=== PATIENT | female | born 1985 | race African-American/Black ===

== ENCOUNTER 2016-09-24 10:27 | Emergency (ER) | payer OTHER ==
[2016-09-24 10:32] VITALS: BP 112/67; BMI 21.5
--- NOTE | 2016-09-24 10:45 | DR.GENAD ---
HPI - PCP Primary Care Physician: JUAN C - HPI Comment HPI Comment: PATIENT HAVE HISTORY OF CHRONIC HEADACHE. HAVE TAKEN TYLENOL WITHOUT RELIEF. HAVE NAUSEA BUT NO VOMITING. DENIES DYSURIA. - Complaint/Symptoms Chief Complaint Doctors Comments: HEADACHE, LOWER BACK AND ABDOMINAL PAIN. PATIENT IS 4 MONTHS . Chief Complaint:: PT. C/O HEADACHE AND LOWER BACK PAIN. PT. 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 - Nurses notes reviewed Nurses Notes Review: Yes - Source History Provided: Patient - Mode of Arrival Mode of Arrival: Ambulatory - Timing Onset of Chief Complaint: 09/21/16 Came on: Suddenly - Duration Duration: Constant Duration: Days - Severity Severity: Moderate PMH - PMH Past Medical History: No Past Surgical History: No Surgical History: No History - Family History History of Family Medical Conditions: Yes Family Medical History: Coronary Artery Disease, Hypertension - Social History Does patient currently use any type of tobacco product: No Have you used tobacco products in the last 12 months: No Type of Tobacco Use: None Does any household member use tobacco: No Alcohol Use: None Do you use any recreational Drugs:: No Lives With: Family Lives Where: Home - infectious screening In the last 2 months have you had wt loss of >10#?: NO Have you had fever, night sweats or hemotysis?: No Have you traveled outside the country in the last 6 months?: No Isolation: Standard ROS - Review of Systems Constitutional: No Symptoms Reported Eyes: No Symptoms Reported ENTM: No Symptoms Reported. negative: Ear Pain, Nose Congestion, Throat Pain Respiratoy: No Symptoms Reported Cardiovascular: No Symptoms Reported Gastrointestinal/Abdominal: Abdominal Pain Neurological: Headache Musculoskeletal: No Symptoms Reported Integumentary: No Symptoms Reported Hematologic/Lymphatic: No Symptoms Reported Endocrine: No Symptoms Reported All Other Systems: Reviewed and Negative PE - Vital Signs Vitals: Temperature 98.5 F Pulse Rate 89 Respiratory Rate 17 Blood Pressure 112/67 O2 Sat by Pulse Oximetry 100 - General Limitations: No Limitations General Appearance: Alert - Head Head Exam: Normal Inspection - Eyes Eye exam: Normal Appearance - ENT ENT Exam: Normal External Ear Exam External Ear Exam: Normal External Inspection TM/Canal Exam: Bilateral Normal Nose Exam: Normal Nose Exam Mouth Exam: Normal Inspection Throat Exam: Normal Inspection - Neck Neck Exam: Trachea Midline - Chest Chest Inspection: Symmetric Chest Wall Rise - Respiratory Respiratory Exam: Normal Lung Sounds Bilat Respiratory Exam: Bilateral Clear to Auscultation - Cardiovascular Cardiovascular Exam: Regular Rate, Normal Rhythm, Normal Heart Sounds - Abdominal Exam Abdominal Exam: Normal Bowel Sounds, Soft, Tenderness Abdominal Tenderness: RLQ, LLQ, Moderate - Extremities Extremities Exam: Normal Inspection - Back Back Exam: Normal Inspection - Neurologic Neurological Exam: Alert, Oriented X3 - Psychiatric Psychiatric Exam: Anxious - Skin Skin Exam: Normal Color MDM - Differential Diagnosis Differential Diagnosis: LOWER BACK PAIN, LOWER ABDOMINAL PAIN, MIGRAINE HEADACHE Course - Treatment Treatment: SEE ORDERS - Education/Counseling Education/Counseling: Patient, Education Educated On: Diagnosis, Needs for Follow Up ROR - Labs Reviewed Laboratory Results Reviewed?: Yes Laboratory: HCG, Quant 96071 mIU/mL (0-6) H 09/24/16 11:03 Specimen Type Clean catch urine 09/24/16 10:50 Urine Color Yellow (YELLOW) 09/24/16 10:50 Urine Appearance Clear (CLEAR) 09/24/16 10:50 Urine pH 6.0 (5.0 - 8.0) 09/24/16 10:50 Ur Specific Brandon 1.025 (1.000-1.030) 09/24/16 10:50 Urine Protein Negative (NEGATIVE) 09/24/16 10:50 Urine Glucose (UA) Negative (NEGATIVE) 09/24/16 10:50 Urine Ketones 1+ (NEGATIVE) 09/24/16 10:50 Urine Occult Blood Negative (NEGATIVE) 09/24/16 10:50 Urine Nitrite Negative (NEGATIVE) 09/24/16 10:50 Urine Bilirubin Negative (NEGATIVE) 09/24/16 10:50 Urine Urobilinogen 1+ (NORMAL) 09/24/16 10:50 Ur Leukocyte Esterase 1+ (NEGATIVE) 09/24/16 10:50 Urine RBC 0 /HPF (NEGATIVE) 09/24/16 10:50 Urine WBC 1-2 /HPF (NEGATIVE) 09/24/16 10:50 Ur Squamous Epith Cells Rare /HPF (NEGATIVE) 09/24/16 10:50 Urine Bacteria Negative /HPF (NEGATIVE) 09/24/16 10:50 Ur Culture Indicated? No/not indicated 09/24/16 10:50 - XRAY XRAY Interpreted by: Radiologist XRAY Findings: REPORT DISCUSS WITH PATIENT - Diagnosis Discharge Problem: Abdominal pain affecting , Back pain affecting Migraine Qualifiers: Migraine type: without aura Status migrainosus presence: without status migrainosus Intractability: intractable Qualified Code(s): G43.019 - Migraine without aura, intractable, without status migrainosus - Discharge Plan Disposition: 01 HOME, SELF-CARE Condition: Stable Prescriptions: Acetaminophen/Codeine Tab [TYLENOL w/CODEINE #3 (300 MG/30 MG) *] 1 tab PO Q6H PRN #12 tab PRN Reason: Pain - Follow ups/Referrals Follow ups/Referrals: NFD,None [Primary Care Provider] - 3 days MG MITCHELL [STAFF PHYSICIAN] - 1 day - Instructions Instructions: Abdominal Pain During , [id number], Back Pain in , Migraine Headache, [id number] Additional Instructions: RETURN TO ED IF WORSE.
[2016-09-24 11:05] LABS: BILIRUBIN,URINE NEGATIVE (NEGATIVE); BLOOD/HEMOGLOBIN,URINE NEGATIVE (NEGATIVE); GLUCOSE, URINE NEGATIVE (NEGATIVE); KETONES,URINE 1+ (NEGATIVE); LEUKOCYTE ESTERASE ,URINE 1+ (NEGATIVE); NITRITES,URINE NEGATIVE (NEGATIVE); PROTEIN,URINE NEGATIVE (NEGATIVE); UROBILINOGEN,URINE 1+ (NORMAL)
[2016-09-24 11:08] LABS: APPEARANCE,URINE CLEAR (CLEAR); COLOR,URINE YELLOW (YELLOW)
[2016-09-24 11:10] LABS: BACTERIA,URINE NEGATIVE /HPF (NEGATIVE); RBC,URINE 0 /HPF (NEGATIVE); SQUAMOUS EPITHELIAL CELL,UR RARE /HPF (NEGATIVE)
--- NOTE | 2016-09-24 12:25 | US ---
HISTORY: Low back pain and low abdominal pain Study: OB ultrasound greater than 14 weeks Comparison: None Technique: Multiple grayscale and color flow Doppler images of the pelvis were obtained with focused evaluation of the fetus. Findings: A viable single intrauterine is identified with heart tones of 174 beats per minute. A cephalic presentation is observed with a posterior and fundal placenta. Normal amniotic fluid v olume is observed . A three-vessel cord is observed. No intracranial abnormality can be identifie d. Value Estimated Gestational Age BPD 4.4 centimeters 20 weeks 4 days HC 14.5 centimeter 17 weeks 5 days AC 12.8 centimeters 18 weeks 3 days FL 2.6 centimeter 18 weeks IMPRESSION: A viable single intrauterine with an average ultrasound age of 18 weeks correspond to an e stimated date of delivery of February 25. There is a 6.3 centimeter posterior uterine fibroid. Reported By:
== END 2016-09-24 12:46 | disposition home or self-care (01) ==
LOC: ER 10:36
DX: R10.84 Generalized abdominal pain (principal); M54.5 Low back pain; G43.019 Migraine without aura, intractable, without status migrainosus; Z3A.18 18 weeks gestation of pregnancy
CPT/HCPCS: 36415; 76801; 81001; 84702; 99283; 99284

== ENCOUNTER 2016-10-16 19:29 | Emergency (ER) | payer OTHER ==
[2016-10-16 19:36] VITALS: BP 105/58; BMI 21.9
--- NOTE | 2016-10-16 21:22 | DR.GENAD ---
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[employer] - Source History Provided: Patient - Mode of Arrival Mode of Arrival: Ambulatory - Timing Onset of Chief Complaint: 10/15/16 PMH - PMH Past Medical History: No Past Surgical History: No Surgical History: No History - Family History History of Family Medical Conditions: Yes Family Medical History: Coronary Artery Disease, Hypertension - Social History Do you use any recreational Drugs:: No Lives With: Family Lives Where: Home - infectious screening In the last 2 months have you had wt loss of >10#?: NO Have you had fever, night sweats or hemotysis?: No Have you traveled outside the country in the last 6 months?: No Isolation: Standard ROS - Review of Systems Constitutional: No Symptoms Reported Eyes: No Symptoms Reported ENTM: No Symptoms Reported Respiratoy: No Symptoms Reported Cardiovascular: No Symptoms Reported Gastrointestinal/Abdominal: No Symptoms Reported Genitourinary: No Symptoms Reported Neurological: No Symptoms Reported Musculoskeletal: No Symptoms Reported Integumentary: No Symptoms Reported Hematologic/Lymphatic: No Symptoms Reported Endocrine: No Symptoms Reported Psychiatric: No Symptoms Reported All Other Systems: Reviewed and Negative PE - Vital Signs Vitals: Temperature 99.6 F Pulse Rate 103 Respiratory Rate 18 Blood Pressure 105/58 O2 Sat by Pulse Oximetry 100 - General Limitations: No Limitations General Appearance: Alert - Head Head Exam: Normal Inspection, Atraumatic - Eyes Eye exam: Normal Appearance, PERRL, EOMI - ENT ENT Exam: Normal Exam External Ear Exam: Normal External Inspection TM/Canal Exam: Bilateral Normal Nose Exam: Normal Nose Exam Mouth Exam: Normal Inspection Throat Exam: Normal Inspection - Neck Neck Exam: Normal Inspection - Chest Chest Inspection: Normal Inspection - Respiratory Respiratory Exam: Normal Lung Sounds Bilat Respiratory Exam: Bilateral Clear to Auscultation - Cardiovascular Cardiovascular Exam: Regular Rate - Abdominal Exam Abdominal Exam: Normal Inspection Abdominal Tenderness: negative: RUQ, RLQ, LUQ, LLQ, Epigastrium, Suprapubic, Diffuse, Mild, Moderate, Severe, Other - Extremities Extremities Exam: Normal Inspection - Back Back Exam: Normal Inspection - Neurologic Neurological Exam: Alert, Oriented X3, CN II-XII Intact - Psychiatric Psychiatric Exam: Normal Affect - Skin Skin Exam: Warm, Dry, Intact ROR - Labs Reviewed Laboratory Results Reviewed?: Yes (Influenza A) - Diagnosis Discharge Problem: Influenza A - Discharge Plan Condition: Stable - Follow ups/Referrals Follow ups/Referrals: Dino Pope [Primary Care Provider] - 3 days - Instructions
[2016-10-16] MEDS ORDERED: TAMIFLU PO ONE ×2 (21:30→21:32)
== END 2016-10-16 21:41 | disposition home or self-care (01) ==
LOC: ER 19:38
DX: J11.1 Influenza due to unidentified influenza virus with other respiratory manifestations (principal); Z3A.20 20 weeks gestation of pregnancy
CPT/HCPCS: 87502; 87503; 99283; 99284; G9035